=== PATIENT | female | born 1950 | race Caucasian/White ===

== ENCOUNTER → 2018-08-03 | Outpatient (CLI) | payer OTHER | LOC: CIMAGING 11:03 | DX: Z12.31 Encounter for screening mammogram for malignant neoplasm of breast (principal) ==

== ENCOUNTER → 2018-12-25 | Outpatient (CLI) | payer OTHER | LOC: EMCIMAGING 15:04 | PROVIDERS: ATTEND Physician Assistant Medical | DX: R93.89 Abnormal findings on diagnostic imaging of other specified body structures (principal); D25.2 Subserosal leiomyoma of uterus; Z78.0 Asymptomatic menopausal state | CPT/HCPCS: 76856-PN ==